=== PATIENT | male | born 1965 | race Hispanic/Latino ===

== ENCOUNTER 2018-07-30 20:27 | Observation (INO) | payer BC ==
[~2018-07-30] VITALS: Ht 167.6 cm; Wt 87.1 kg
[2018-07-30] MEDS ORDERED: PANTOPRAZOLE 40 MG 10ML VIAL IV STA (20:47)
[2018-07-30] MEDS ORDERED: ONDANSETRON HCL INJ 2 MG/ML VIAL IV STA (20:47)
[2018-07-30] MEDS ORDERED: SODIUM CHLORIDE 0.9% 1000ML 1,000 ML IV STA (20:47)
--- NOTE | 2018-07-30 21:40 | Diagnostic Imaging Report ---
EXAMINATION: CXR 1 VEW - HOPD INDICATION: Diffuse pain COMPARISON: None FINDINGS: TUBES and LINES: None. LUNGS: Lungs are well inflated. Lungs are clear. There is no evidence of pneumonia or pulmonary edema. PLEURA: No pleural effusion or pneumothorax. HEART AND MEDIASTINUM: The cardiomediastinal silhouette is unremarkable. BONES AND SOFT TISSUES: No acute osseous lesion. Soft tissues are unremarkable. UPPER ABDOMEN: No free air under the diaphragm. IMPRESSION: No acute thoracic abnormality. Signed by: Dr. Lexx Rodriguez M.D. on 07/30/2018 9:36 PM
[2018-07-30 22:33] LABS: CREATINE KINASE 560 IU/L (30-200)
[2018-07-30] MEDS ORDERED: ONDANSETRON HCL INJ 2 MG/ML VIAL IV PRN (23:00)
[2018-07-30] MEDS ORDERED: ACETAMINOPHEN 325 MG TAB PO PRN (23:00)
[2018-07-31] VITALS (10 sets, daily range): BP systolic 104–121; BP diastolic 59–75
[2018-07-31] MEDS: SODIUM CHLORIDE 0.9% 1000ML 1,000 ML IV SCH ×7 (00:46→23:29)
[2018-07-31 05:06] LABS: BASOPHILS # (AUTO) 0.1 (0.0-0.1); BASOPHILS % 0.5 % (0.0-1.0); EOSINOPHILS # (AUTO) 0.1 (0.0-0.4); EOSINOPHILS % 0.9 % (0.0-6.0); HEMATOCRIT 36.9 % (38.2-49.6); HEMOGLOBIN 12.8 g/dL (14.0-18.0); LYMPHOCYTES % 31.3 % (18.0-39.1); MEAN CORPUSCULAR HEMOGLOBIN 32.5 pg (28-32); MEAN CORPUSCULAR HGB CONC 34.7 g/dL (31-35); MEAN CORPUSCULAR VOLUME 93.7 fL (81-99); MONOCYTES % 10.5 % (4.4-11.3); NEUTROPHILS # (AUTO) 5.4 (2.1-6.9); NEUTROPHILS % 56.4 % (38.7-80.0); PLATELET COUNT 220 x10e3/uL (140-360); RED BLOOD COUNT 3.94 x10e6/uL (4.3-5.7); RED CELL DISTRIBUTION WIDTH 13.9 % (11.7-14.4)
[2018-07-31 05:40] LABS: ALANINE AMINOTRANSFERASE 19 IU/L (0-55); ALBUMIN 3.6 g/dL (3.5-5.0); ALBUMIN/GLOBULIN RATIO 1.1 (0.8-2.0); ALKALINE PHOSPHATASE 53 IU/L (40-150); ANION GAP 13.8 mmol/L (8-16); BLOOD UREA NITROGEN 28 mg/dL (7-26); BUN/CREATININE RATIO 17 (6-25); CALCIUM 9.2 mg/dL (8.4-10.2); CARBON DIOXIDE 25 mmol/L (22-29); CHLORIDE 103 mmol/L (98-107); CHOL/HDL RATIO 4.8 (3.9-4.7); CHOLESTEROL 143 MD/DL (0-199); CREATINE KINASE 736 IU/L (30-200); CREATININE, SERUM 1.65 mg/dL (0.72-1.25); EST GLOMERULAR FILTRATION RATE 44 ML/MIN (60-); GLUCOSE 108 mg/dL (74-118); HDL CHOLESTEROL 30 MG/DL (40-60); LDL CHOLESTEROL 90 MG/DL (60-130); POTASSIUM 3.8 mmol/L (3.5-5.1); SODIUM 138 mmol/L (136-145); TRIGLYCERIDES 113 MG/DL (0-149)
[2018-07-31 08:05] LABS: CHOL/HDL RATIO 4.6 (3.9-4.7)
[2018-07-31] MEDS: PANTOPRAZOLE 40 MG 10ML VIAL IV SCH (08:59)
[2018-07-31] MEDS: FAMOTIDINE 20 MG TAB PO SCH ×2 (08:59→17:09)
--- NOTE | 2018-07-31 13:22 | History and Physical ---
PRIMARY CARE PHYSICIAN: None. CHIEF COMPLAINT: Muscle ache and muscle cramps. HISTORY OF PRESENT ILLNESS: This is a 53-year-old man with a history of hypertension, now developing muscle cramps. Patient admits to working in the heat of the sun all day. 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 Then he developed some pain in his legs with vomiting. Later on he had muscle cramps. Therefore, he came to the hospital. Here he was found to have acute rhabdomyolysis and acute kidney injury and admitted for further evaluation and management. PAST MEDICAL HISTORY: Hypertension, cigarette use. PAST SURGICAL HISTORY: None. ALLERGIES: PER THE ELECTRONIC MEDICAL RECORDS. FAMILY HISTORY/SOCIAL HISTORY: Patient is . He has 3 children. No alcohol or illicits. He smokes a quarter pack of cigarettes per day. MEDICATIONS: Per the electronic medical records. Medications reviewed. REVIEW OF SYSTEMS: Denies any fever, chills, sweats. Denies any diarrhea. He denies any headache, vision changes. VITAL SIGNS: Have been reviewed. PHYSICAL EXAMINATION GENERAL APPEARANCE: A tired-appearing man resting in bed. HEENT: Anicteric. CARDIOVASCULAR: Normal S1/S2. LUNGS: Moderate breath sounds. ABDOMEN: Soft, nontender, nondistended. EXTREMITIES: He has tenderness in the thighs bilaterally. SKIN: Dry. PSYCHIATRIC: Normal affect. NEUROLOGICALLY: Alert and oriented x3. LABS: Reviewed. ASSESSMENT: This is a 53-year-old man. 1. Acute rhabdomyolysis. 2. Acute kidney injury. 3. Overweight state. 4. Cigarette use. PLAN 1. Rehydrate patient. 2. Bolus 2 liters fluid and increase IV fluid rate. 3. Follow up CPK levels. 4. Refuses nicotine patch at this time. 5. Obtain lipid panel. 6. Will utilize Pepcid and Lovenox for prophylaxis. Job#: [id number] EV
[2018-07-31 14:16] LABS: CREATINE KINASE 693 IU/L (30-200)
[2018-07-31] MEDS ORDERED: ENOXAPARIN SOD INJ 40 MG/0.4 ML SYR SC SCH (17:00)
[2018-08-01] MEDS: SODIUM CHLORIDE 0.9% 1000ML 1,000 ML IV SCH ×4 (01:06→08:46)
[2018-08-01 04:40] VITALS: BP 115/74
[2018-08-01 07:09] LABS: ANION GAP 9.2 mmol/L (8-16); BLOOD UREA NITROGEN 12 mg/dL (7-26); BUN/CREATININE RATIO 15 (6-25); CALCIUM 8.5 mg/dL (8.4-10.2); CARBON DIOXIDE 25 mmol/L (22-29); CHLORIDE 109 mmol/L (98-107); CREATININE, SERUM 0.79 mg/dL (0.72-1.25); EST GLOMERULAR FILTRATION RATE > 60 ML/MIN (60-); GLUCOSE 99 mg/dL (74-118); LIPASE 32 U/L (8-78); POTASSIUM 4.2 mmol/L (3.5-5.1); SODIUM 139 mmol/L (136-145)
[2018-08-01] MEDS: FAMOTIDINE 20 MG TAB PO SCH (07:38)
[2018-08-01] MEDS: PANTOPRAZOLE 40 MG 10ML VIAL IV SCH (07:38)
[2018-08-01 07:51] VITALS: BP 121/76
[2018-08-01 07:54] VITALS: BP 121/76
[2018-08-01 11:00] VITALS: BP 113/76
--- NOTE | 2018-08-03 10:17 | Discharge Summary ---
PRINCIPAL DIAGNOSES 1. Acute rhabdomyolysis. 2. Dehydration. 3. Acute kidney injury. 4. Overweight state. 5. Cigarette use. SECONDARY DIAGNOSIS: Cigarette use. HISTORY OF PRESENT ILLNESS: Refer to the [facility] HOSPITAL COURSE: The patient was found to have acute rhabdomyolysis, acute kidney injury and dehydration. Received aggressive IV rehydration. Counseling on need for increased fluids when in the heat and in the sun. He refused nicotine patch. The patient did well and subsequently transitioned home with plans to follow up. DISCHARGE MEDICATIONS: Per electronic medical record. FOLLOWUP: With me in 1 week. CONDITION ON DISCHARGE: Stable and improved. DISCHARGE LOCATION: Home. BOY SQUIRES MD Job#: [id number] RI
--- OUTSIDE RECORDS SUMMARY | 2018-08-11 10:58 | XMS REPORT ---
Author Author [facility] Address Unknown Phone Unavailable Care Team Providers Care Catalytic Converter Operator Name Role Phone Radhika WRIGHT Unavailable Unavailable Problems This patient has no known problems. Allergies, Adverse Reactions, Alerts This patient has no known allergies or adverse reactions. Medications This patient has no known medications. Encounters Start Date/Time End Date/Time Encounter Type Admission Type Attending Clinicians Care Facility Care Department Encounter ID 2017-05-13 00:00:00 2017-05-13 00:00:00 Outpatient [facility] [id number] 2017-05-05 10:38:24 2017-05-05 10:38:24 Emergency [facility] MED [id number] Results Test Description Test Time Test Comments Text Results Atomic Results Result Comments CXR 1 VEW - HOPD 2018-07-30 21:36:00 [place] [id number] Patient Name: FRANCISCO MURRAY MR #: [id number] : 1965 Age/Sex: 53/M Req #: [id number] Adm Physician: Ordered by: DARIA WRIGHT MD Report #: [id number] Location: [facility] Room/Bed: Procedure: [id number] HOPD/CXR 1 VEW - HOPD Exam Date: 07/30/18 Exam Time: 2119 REPORT STATUS: Signed EXAMINATION: CXR 1 VEW - HOPD INDICATION: Diffuse pain COMPARISON: None FINDINGS: TUBES and LINES: None. LUNGS: Lungs are well inflated. Lungs are clear. There is no evidence of pneumonia or pulmonary edema. PLEURA: No pleural effusion or pneumothorax. HEART AND MEDIASTINUM: The cardiomediastinal silhouette is unremarkable. BONES AND SOFT TISSUES: No acute osseous lesion. Soft tissues are unremarkable. UPPER ABDOMEN: No free air under the diaphragm. IMPRESSION: No acute thoracic abnormality. Signed by: Dr. Lexx Rodriguez M.D. on 07/30/2018 9:36 PM Dictated By: LEXX AVILA MD 35 Transcribed By: SATINDER on 07/30/182135 COPY TO: DARIA WRIGHT MD
== END 2018-08-01 12:00 | disposition home or self-care (01) ==
LOC: FSED 20:27 → ERHOLD 22:58 → IMCU 07-31 00:09
PROVIDERS: ADMIT Internal Medicine; ATTEND Internal Medicine
DX: M62.82 Rhabdomyolysis (principal); E86.0 Dehydration; F17.210 Nicotine dependence, cigarettes, uncomplicated; F10.21 Alcohol dependence, in remission; I10 Essential (primary) hypertension; N17.9 Acute kidney failure, unspecified; E66.3 Overweight; Z68.31 Body mass index [BMI] 31.0-31.9, adult
CPT/HCPCS: 36415 ×3; 71045; 80048 ×2; 80053; 80061; 80076; 81003; 82550 ×3; 82553 ×2; 83690; 84443; 84484 ×2; 85025 ×2; 93005 ×2; 99284; G0378 ×3; J1650; J2405; J7030 ×3